=== PATIENT | male | born 1935 | race Caucasian/White ===

== ENCOUNTER 2016-11-06 14:47 | Outpatient (CLI) | payer MEDICARE, OTHER ==
[2016-11-06 15:15] LABS: #Basophils 0.1 thou/uL (0.0-0.2); #Eosinphils 0.2 thou/uL (0.0-0.7); #Lymphocytes 1.7 thou/uL (1.20-3.40); #Monocytes 0.5 thou/uL (0.11-0.59); #Neutrophils 3.7 thou/uL (1.40-6.50); %Basophils 0.9 % (0.0-1.0); %Eosinophils 3.7 % (0.0-10.0); %Monocytes 8.3 % (0.0-10.0); Hematocrit 37.2 % (42.0-52.0); Mean Platelet Volume 8.1 fL (7.4-10.4); Red Blood Cell (RBC) Count 3.81 mill/uL (4.70-6.10); White Blood Cell (WBC) Count 6.2 thou/uL (4.8-10.8)
[2016-11-06 15:32] LABS: Hemoglobin A1c 6.8 % (4.0-6.0)
[2016-11-06 15:37] LABS: ALT (SGPT) 17 U/L (0-55); AST (SGOT) 18 U/L (5-34); Alkaline Phosphatase 61 U/L (40-150); Anion Gap 16 mmol/L (10-20); BUN (Urea Nitrogen) 31 mg/dL (8.4-25.7); Bilirubin, Total 0.4 mg/dL (0.2-1.2); Calc. Creatinine Clearance 0 mL/min (70-130); Calcium 9.1 mg/dL (7.8-10.44); Carbon Dioxide 26 mmol/L (23-31); Chloride 107 mmol/L (98-107); Estimated GFR-MDRD 48; Globulin 2.4 g/dL (2.4-3.5); LDL Cholesterol, Calculated 96 mg/dL; Protein, Total 6.3 g/dL (5.8-8.1)
== END 2016-11-06 14:48 | disposition home or self-care (01) ==
LOC: HPCALD 14:47
PROVIDERS: ATTEND Family Medicine
DX: E78.5 Hyperlipidemia, unspecified (principal); I10 Essential (primary) hypertension; E11.9 Type 2 diabetes mellitus without complications
CPT/HCPCS: 36415; 80053; 80061; 83036; 85025

== ENCOUNTER 2017-05-10 12:13 | Outpatient (CLI) | payer MEDICARE, OTHER ==
[2017-05-10 12:44] LABS: ALT (SGPT) 16 U/L (8-55); AST (SGOT) 15 U/L (5-34); Albumin 3.5 g/dL (3.4-4.8); Alkaline Phosphatase 59 U/L (40-150); Anion Gap 13 mmol/L (10-20); BUN (Urea Nitrogen) 30 mg/dL (8.4-25.7); Bilirubin, Total 0.5 mg/dL (0.2-1.2); Calc. Creatinine Clearance 0 mL/min (70-130); Calcium 8.7 mg/dL (7.8-10.44); Carbon Dioxide 29 mmol/L (23-31); Cardiac Risk 3.4 (Less than 4.5); Chloride 106 mmol/L (98-107); Cholesterol 112 mg/dl (< 200 Desired); Estimated GFR-MDRD 63; Globulin 2.7 g/dL (2.4-3.5); Glucose 211 mg/dL (83-110); HDL Cholesterol 33 mg/dL (>60 Neg Risk); LDL Cholesterol, Calculated 59 mg/dL; Potassium 4.3 mmol/L (3.5-5.1); Protein, Total 6.2 g/dL (5.8-8.1); Sodium 144 mmol/L (136-145); Triglycerides 100 mg/dL (Less than 150)
[2017-05-10 13:29] LABS: #Eosinphils 0.2 thou/uL (0.0-0.7); #Lymphocytes 1.6 thou/uL (1.20-3.40); #Monocytes 0.6 thou/uL (0.11-0.59); #Neutrophils 3.1 thou/uL (1.40-6.50); %Basophils 0.9 % (0.0-1.0); %Eosinophils 4.1 % (0.0-10.0); %Lymphocytes 28.2 % (21.0-51.0); %Monocytes 11.1 % (0.0-10.0); %Neutrophils 55.7 % (42.0-75.0); Hemoglobin 11.2 g/dL (14.0-18.0); Mean Corpuscular HGB CONC 34.9 g/dL (32.0-36.0); Mean Corpuscular Hemoglobin 33.1 pg (27.0-31.0); Mean Corpuscular Volume 94.7 fl (80.0-94.0); Mean Platelet Volume 7.9 fL (7.4-10.4); Platelet Count 173 thou/uL (130-400); RBC Distribution Width 13.3 % (11.5-14.5); Red Blood Cell (RBC) Count 3.38 mill/uL (4.70-6.10); White Blood Cell (WBC) Count 5.6 thou/uL (4.8-10.8)
[2017-05-10 13:41] LABS: Hemoglobin A1c 7.4 % (4.0-6.0)
== END 2017-05-10 12:14 | disposition home or self-care (01) ==
LOC: HPCALD 12:13
PROVIDERS: ATTEND Family Medicine
DX: E78.5 Hyperlipidemia, unspecified (principal); E53.8 Deficiency of other specified B group vitamins; E11.9 Type 2 diabetes mellitus without complications; I10 Essential (primary) hypertension
CPT/HCPCS: 36415; 80053; 80061; 82607; 83036; 85025

== ENCOUNTER 2017-06-19 15:02 | Outpatient (CLI) | payer MEDICARE, OTHER | END 2017-06-19 15:03 | disposition home or self-care (01) | LOC: BURLABSP 15:02 | PROVIDERS: ATTEND Family Medicine | DX: E11.621 Type 2 diabetes mellitus with foot ulcer (principal); L97.512 Non-pressure chronic ulcer of other part of right foot with fat layer exposed | CPT/HCPCS: 87070; 87077; 87186; 87205 ==

== ENCOUNTER 2017-07-16 11:37 | Inpatient (IN) | payer MEDICARE, OTHER ==
[2017-07-16 15:05] VITALS: BMI 40.4
[2017-07-16] MEDS ORDERED: Insulin Regular 300 UNITS/3 ML VIAL SC PRN ×2 (17:27→23:28)
[2017-07-16] MEDS ORDERED: HYDROcodone/Acetaminophen 5/325 mg Tablet PO PRN (17:27)
[2017-07-16] MEDS: Ascorbic Acid 500 mg Chewable Tablet PO SCH (22:21)
[2017-07-16] MEDS: Nitrofurantoin Monohyd/M-Cryst 100 MG CAP PO SCH (22:29)
[2017-07-16] MEDS: Atorvastatin Calcium 40 MG TAB PO SCH (22:30)
[2017-07-16] MEDS: Carvedilol 3.125 MG TAB PO SCH (22:30)
[2017-07-16] MEDS: Isosorbide Dinitrate 20 MG TAB PO SCH (22:30)
[2017-07-16] MEDS: Gabapentin 300 MG CAP PO SCH (22:31)
[2017-07-16] MEDS ORDERED: Dextrose 50% Abboject 50 ML SYRINGE IVP PRN (23:26)
[2017-07-16] MEDS ORDERED: Dextrose 5% in Water 1,000 ML IV PRN (23:26)
[2017-07-17] MEDS: Docusate Sodium 100 MG/10 ML UDCUP PO PRN (10:52)
[2017-07-17] MEDS: Polyethylene Glycol 3350 17 GM Packet PO PRN (10:52)
[2017-07-17] MEDS: Levemir Flexpen 100 UNITS/ML PEN SC SCH (10:52)
[2017-07-17] MEDS: glipiZIDE 5 MG TAB PO SCH (10:58)
[2017-07-17] MEDS: Terazosin HCl 1 MG CAP PO SCH (11:02)
[2017-07-17] MEDS: Ascorbic Acid 500 mg Chewable Tablet PO SCH ×2 (11:03→20:40)
[2017-07-17] MEDS: Famotidine 20 MG TAB PO SCH (11:03)
[2017-07-17] MEDS: Nitrofurantoin Monohyd/M-Cryst 100 MG CAP PO SCH ×2 (11:04→20:41)
[2017-07-17] MEDS: Ferrous Sulfate 325 MG TAB PO SCH ×2 (11:04→18:23)
[2017-07-17] MEDS: metFORMIN HCl XR 500 MG TAB PO SCH ×2 (11:04→18:23)
[2017-07-17] MEDS: Isosorbide Dinitrate 20 MG TAB PO SCH ×2 (11:04→20:41)
[2017-07-17] MEDS: Carvedilol 3.125 MG TAB PO SCH ×2 (11:05→20:39)
[2017-07-17] MEDS: Gabapentin 300 MG CAP PO SCH ×2 (11:05→20:42)
[2017-07-17] MEDS: Aspirin 81 mg Enteric Coated Tablet PO SCH (11:06)
[2017-07-17] MEDS: Dronedarone HCl 400 MG TAB PO SCH ×2 (11:06→18:23)
[2017-07-17] MEDS: Furosemide 40 MG TAB PO SCH (11:10)
[2017-07-17] MEDS: Insulin Regular 300 UNITS/3 ML VIAL SC PRN ×2 (13:08→18:26)
[2017-07-17] MEDS: Atorvastatin Calcium 40 MG TAB PO SCH (20:40)
[2017-07-18] MEDS: glipiZIDE 5 MG TAB PO SCH (08:42)
[2017-07-18] MEDS: Gabapentin 300 MG CAP PO SCH ×2 (08:43→21:48)
[2017-07-18] MEDS: Terazosin HCl 1 MG CAP PO SCH (08:44)
[2017-07-18] MEDS: Ascorbic Acid 500 mg Chewable Tablet PO SCH ×2 (08:45→21:47)
[2017-07-18] MEDS: Furosemide 40 MG TAB PO SCH (08:45)
[2017-07-18] MEDS: Carvedilol 3.125 MG TAB PO SCH ×2 (08:45→21:47)
[2017-07-18] MEDS: metFORMIN HCl XR 500 MG TAB PO SCH ×2 (08:46→21:45)
[2017-07-18] MEDS: Isosorbide Dinitrate 20 MG TAB PO SCH ×2 (08:47→21:49)
[2017-07-18] MEDS: Nitrofurantoin Monohyd/M-Cryst 100 MG CAP PO SCH ×2 (08:47→21:45)
[2017-07-18] MEDS: Famotidine 20 MG TAB PO SCH (08:48)
[2017-07-18] MEDS: Ferrous Sulfate 325 MG TAB PO SCH ×2 (08:51→21:48)
[2017-07-18] MEDS: Dronedarone HCl 400 MG TAB PO SCH ×2 (08:51→21:48)
[2017-07-18] MEDS: Aspirin 81 mg Enteric Coated Tablet PO SCH (09:03)
[2017-07-18] MEDS: Levemir Flexpen 100 UNITS/ML PEN SC SCH (09:07)
[2017-07-18] MEDS: Atorvastatin Calcium 40 MG TAB PO SCH (21:48)
[2017-07-19] MEDS: Levemir Flexpen 100 UNITS/ML PEN SC SCH (10:45)
[2017-07-19] MEDS: Aspirin 81 mg Enteric Coated Tablet PO SCH (10:45)
[2017-07-19] MEDS: Terazosin HCl 1 MG CAP PO SCH (10:47)
[2017-07-19] MEDS: Ascorbic Acid 500 mg Chewable Tablet PO SCH ×2 (10:47→21:10)
[2017-07-19] MEDS: Famotidine 20 MG TAB PO SCH (10:48)
[2017-07-19] MEDS: Nitrofurantoin Monohyd/M-Cryst 100 MG CAP PO SCH ×2 (10:48→21:11)
[2017-07-19] MEDS: glipiZIDE 5 MG TAB PO SCH (10:48)
[2017-07-19] MEDS: Carvedilol 3.125 MG TAB PO SCH ×2 (10:49→21:16)
[2017-07-19] MEDS: Gabapentin 300 MG CAP PO SCH ×2 (10:50→21:09)
[2017-07-19] MEDS: Isosorbide Dinitrate 20 MG TAB PO SCH ×2 (10:51→21:16)
[2017-07-19] MEDS: Furosemide 40 MG TAB PO SCH (10:53)
[2017-07-19] MEDS: Dronedarone HCl 400 MG TAB PO SCH ×2 (10:53→18:11)
[2017-07-19] MEDS: Ferrous Sulfate 325 MG TAB PO SCH ×2 (10:53→18:12)
[2017-07-19] MEDS: metFORMIN HCl XR 500 MG TAB PO SCH ×2 (10:59→18:11)
[2017-07-19] MEDS: Atorvastatin Calcium 40 MG TAB PO SCH (21:10)
[2017-07-20] MEDS: glipiZIDE 5 MG TAB PO SCH (08:34)
[2017-07-20] MEDS: Carvedilol 3.125 MG TAB PO SCH ×2 (08:37→21:10)
[2017-07-20] MEDS: Aspirin 81 mg Enteric Coated Tablet PO SCH (08:37)
[2017-07-20] MEDS: metFORMIN HCl XR 500 MG TAB PO SCH ×2 (08:37→16:33)
[2017-07-20] MEDS: Gabapentin 300 MG CAP PO SCH ×2 (08:39→21:07)
[2017-07-20] MEDS: Terazosin HCl 1 MG CAP PO SCH (08:39)
[2017-07-20] MEDS: Nitrofurantoin Monohyd/M-Cryst 100 MG CAP PO SCH ×2 (08:40→21:10)
[2017-07-20] MEDS: Furosemide 40 MG TAB PO SCH (08:40)
[2017-07-20] MEDS: Ascorbic Acid 500 mg Chewable Tablet PO SCH ×2 (08:41→21:09)
[2017-07-20] MEDS: Famotidine 20 MG TAB PO SCH (08:41)
[2017-07-20] MEDS: Isosorbide Dinitrate 20 MG TAB PO SCH ×2 (08:41→21:13)
[2017-07-20] MEDS: Dronedarone HCl 400 MG TAB PO SCH ×2 (08:41→16:33)
[2017-07-20] MEDS: Ferrous Sulfate 325 MG TAB PO SCH ×2 (08:41→16:33)
[2017-07-20] MEDS: Levemir Flexpen 100 UNITS/ML PEN SC SCH (08:42)
[2017-07-20] MEDS ORDERED: diphenhydrAMINE HCl 25 MG CAP PO PRN (10:22)
[2017-07-20] MEDS: Insulin Regular 300 UNITS/3 ML VIAL SC PRN (12:30)
[2017-07-20] MEDS: Atorvastatin Calcium 40 MG TAB PO SCH (21:08)
[2017-07-21] MEDS: Levemir Flexpen 100 UNITS/ML PEN SC SCH (09:15)
[2017-07-21] MEDS: Nitrofurantoin Monohyd/M-Cryst 100 MG CAP PO SCH ×2 (09:24→21:04)
[2017-07-21] MEDS: Isosorbide Dinitrate 20 MG TAB PO SCH ×2 (09:24→21:06)
[2017-07-21] MEDS: Dronedarone HCl 400 MG TAB PO SCH ×2 (09:24→17:37)
[2017-07-21] MEDS: glipiZIDE 5 MG TAB PO SCH (09:25)
[2017-07-21] MEDS: metFORMIN HCl XR 500 MG TAB PO SCH ×2 (09:25→17:36)
[2017-07-21] MEDS: Ferrous Sulfate 325 MG TAB PO SCH ×2 (09:25→17:36)
[2017-07-21] MEDS: Terazosin HCl 1 MG CAP PO SCH (09:25)
[2017-07-21] MEDS: Furosemide 40 MG TAB PO SCH (09:25)
[2017-07-21] MEDS: Famotidine 20 MG TAB PO SCH (09:26)
[2017-07-21] MEDS: Carvedilol 3.125 MG TAB PO SCH ×2 (09:26→21:07)
[2017-07-21] MEDS: Aspirin 81 mg Enteric Coated Tablet PO SCH (09:27)
[2017-07-21] MEDS: Gabapentin 300 MG CAP PO SCH ×2 (09:27→21:01)
[2017-07-21] MEDS: Ascorbic Acid 500 mg Chewable Tablet PO SCH ×2 (09:28→21:03)
[2017-07-21] MEDS: Atorvastatin Calcium 40 MG TAB PO SCH (21:03)
[2017-07-22] MEDS: glipiZIDE 5 MG TAB PO SCH (08:19)
[2017-07-22] MEDS: Dronedarone HCl 400 MG TAB PO SCH ×2 (08:20→17:15)
[2017-07-22] MEDS: Ferrous Sulfate 325 MG TAB PO SCH ×2 (08:21→17:15)
[2017-07-22] MEDS: Ascorbic Acid 500 mg Chewable Tablet PO SCH ×2 (08:21→21:21)
[2017-07-22] MEDS: metFORMIN HCl XR 500 MG TAB PO SCH ×2 (08:21→17:15)
[2017-07-22] MEDS: Aspirin 81 mg Enteric Coated Tablet PO SCH (08:22)
[2017-07-22] MEDS: Carvedilol 3.125 MG TAB PO SCH ×2 (08:22→21:25)
[2017-07-22] MEDS: Furosemide 40 MG TAB PO SCH (08:23)
[2017-07-22] MEDS: Famotidine 20 MG TAB PO SCH (08:23)
[2017-07-22] MEDS: Gabapentin 300 MG CAP PO SCH ×2 (08:23→21:22)
[2017-07-22] MEDS: Nitrofurantoin Monohyd/M-Cryst 100 MG CAP PO SCH ×2 (08:25→21:23)
[2017-07-22] MEDS: Isosorbide Dinitrate 20 MG TAB PO SCH ×2 (08:25→21:24)
[2017-07-22] MEDS: Terazosin HCl 1 MG CAP PO SCH (08:26)
[2017-07-22] MEDS: Levemir Flexpen 100 UNITS/ML PEN SC SCH (08:32)
[2017-07-22] MEDS: Atorvastatin Calcium 40 MG TAB PO SCH (21:23)
[2017-07-22] MEDS: Polyethylene Glycol 3350 17 GM Packet PO PRN (22:29)
[2017-07-23] MEDS: metFORMIN HCl XR 500 MG TAB PO SCH ×2 (08:14→17:59)
[2017-07-23] MEDS: Terazosin HCl 1 MG CAP PO SCH (08:17)
[2017-07-23] MEDS: glipiZIDE 5 MG TAB PO SCH (08:18)
[2017-07-23] MEDS: Ferrous Sulfate 325 MG TAB PO SCH ×2 (08:18→17:59)
[2017-07-23] MEDS: Dronedarone HCl 400 MG TAB PO SCH ×2 (08:18→18:00)
[2017-07-23] MEDS: Ascorbic Acid 500 mg Chewable Tablet PO SCH ×2 (08:18→20:27)
[2017-07-23] MEDS: Gabapentin 300 MG CAP PO SCH ×2 (08:19→20:28)
[2017-07-23] MEDS: Famotidine 20 MG TAB PO SCH (08:20)
[2017-07-23] MEDS: Carvedilol 3.125 MG TAB PO SCH ×2 (08:20→20:34)
[2017-07-23] MEDS: Nitrofurantoin Monohyd/M-Cryst 100 MG CAP PO SCH ×2 (08:20→20:28)
[2017-07-23] MEDS: Isosorbide Dinitrate 20 MG TAB PO SCH ×2 (08:20→20:28)
[2017-07-23] MEDS: Aspirin 81 mg Enteric Coated Tablet PO SCH (08:20)
[2017-07-23] MEDS: Furosemide 40 MG TAB PO SCH (08:20)
[2017-07-23] MEDS: Levemir Flexpen 100 UNITS/ML PEN SC SCH (08:26)
[2017-07-23] MEDS: Docusate Sodium 100 MG/10 ML UDCUP PO PRN (08:31)
[2017-07-23] MEDS ORDERED: Milk Of Magnesia 30 ML UDCUP PO PRN (18:03)
[2017-07-23] MEDS ORDERED: Docusate 100 MG CAP PO PRN (18:03)
[2017-07-23] MEDS: Senokot 8.6 MG TAB PO SCH (20:29)
[2017-07-23] MEDS: Atorvastatin Calcium 40 MG TAB PO SCH (20:30)
[2017-07-24] MEDS: glipiZIDE 5 MG TAB PO SCH (09:19)
[2017-07-24] MEDS: metFORMIN HCl XR 500 MG TAB PO SCH ×2 (09:19→17:26)
[2017-07-24] MEDS: Terazosin HCl 1 MG CAP PO SCH (09:20)
[2017-07-24] MEDS: Gabapentin 300 MG CAP PO SCH ×2 (09:20→21:12)
[2017-07-24] MEDS: Carvedilol 3.125 MG TAB PO SCH ×2 (09:20→21:12)
[2017-07-24] MEDS: Famotidine 20 MG TAB PO SCH (09:20)
[2017-07-24] MEDS: Isosorbide Dinitrate 20 MG TAB PO SCH ×2 (09:21→21:12)
[2017-07-24] MEDS: Ferrous Sulfate 325 MG TAB PO SCH ×2 (09:21→17:25)
[2017-07-24] MEDS: Ascorbic Acid 500 mg Chewable Tablet PO SCH ×2 (09:21→21:13)
[2017-07-24] MEDS: Furosemide 40 MG TAB PO SCH (09:21)
[2017-07-24] MEDS: Finasteride 5 MG TAB PO SCH (09:21)
[2017-07-24] MEDS: Dronedarone HCl 400 MG TAB PO SCH ×2 (09:21→18:47)
[2017-07-24] MEDS: Aspirin 81 mg Enteric Coated Tablet PO SCH (09:34)
[2017-07-24] MEDS: BREO PO SCH (09:36)
[2017-07-24] MEDS: Polyethylene Glycol 3350 17 GM Packet PO PRN (09:39)
[2017-07-24] MEDS: Levemir Flexpen 100 UNITS/ML PEN SC SCH (09:41)
[2017-07-24] MEDS: Insulin Regular 300 UNITS/3 ML VIAL SC PRN (17:26)
[2017-07-24] MEDS: Atorvastatin Calcium 40 MG TAB PO SCH (21:13)
[2017-07-24] MEDS: Senokot 8.6 MG TAB PO SCH (21:14)
[2017-07-25] MEDS: Levemir Flexpen 100 UNITS/ML PEN SC SCH (08:34)
[2017-07-25] MEDS: Ferrous Sulfate 325 MG TAB PO SCH ×2 (09:58→18:21)
[2017-07-25] MEDS: Furosemide 40 MG TAB PO SCH (09:58)
[2017-07-25] MEDS: Finasteride 5 MG TAB PO SCH (09:59)
[2017-07-25] MEDS: Isosorbide Dinitrate 20 MG TAB PO SCH ×2 (09:59→20:59)
[2017-07-25] MEDS: Ascorbic Acid 500 mg Chewable Tablet PO SCH ×2 (09:59→20:59)
[2017-07-25] MEDS: Gabapentin 300 MG CAP PO SCH ×2 (10:00→21:00)
[2017-07-25] MEDS: Terazosin HCl 1 MG CAP PO SCH (10:00)
[2017-07-25] MEDS: Famotidine 20 MG TAB PO SCH (10:01)
[2017-07-25] MEDS: Polyethylene Glycol 3350 17 GM Packet PO PRN (10:02)
[2017-07-25] MEDS: Dronedarone HCl 400 MG TAB PO SCH ×2 (10:02→18:20)
[2017-07-25] MEDS: BREO PO SCH (10:02)
[2017-07-25] MEDS: Aspirin 81 mg Enteric Coated Tablet PO SCH (10:02)
[2017-07-25] MEDS: metFORMIN HCl XR 500 MG TAB PO SCH ×2 (10:02→18:20)
[2017-07-25] MEDS: glipiZIDE 5 MG TAB PO SCH (10:02)
[2017-07-25] MEDS: Carvedilol 3.125 MG TAB PO SCH ×2 (10:03→21:05)
[2017-07-25] MEDS: Insulin Regular 300 UNITS/3 ML VIAL SC PRN (13:36)
[2017-07-25] MEDS: Senokot 8.6 MG TAB PO SCH (21:00)
[2017-07-25] MEDS: Atorvastatin Calcium 40 MG TAB PO SCH (21:01)
[2017-07-26] MEDS: glipiZIDE 5 MG TAB PO SCH (08:33)
[2017-07-26] MEDS: Dronedarone HCl 400 MG TAB PO SCH ×2 (08:33→18:53)
[2017-07-26] MEDS: Ferrous Sulfate 325 MG TAB PO SCH ×2 (08:34→18:52)
[2017-07-26] MEDS: metFORMIN HCl XR 500 MG TAB PO SCH ×2 (08:35→18:51)
[2017-07-26] MEDS: Aspirin 81 mg Enteric Coated Tablet PO SCH (08:35)
[2017-07-26] MEDS: Ascorbic Acid 500 mg Chewable Tablet PO SCH ×2 (08:35→21:05)
[2017-07-26] MEDS: Furosemide 40 MG TAB PO SCH (08:36)
[2017-07-26] MEDS: Gabapentin 300 MG CAP PO SCH ×2 (08:36→21:04)
[2017-07-26] MEDS: Famotidine 20 MG TAB PO SCH (08:36)
[2017-07-26] MEDS: Finasteride 5 MG TAB PO SCH (08:37)
[2017-07-26] MEDS: Isosorbide Dinitrate 20 MG TAB PO SCH ×2 (08:37→21:09)
[2017-07-26] MEDS: Carvedilol 3.125 MG TAB PO SCH ×2 (08:37→21:06)
[2017-07-26] MEDS: Terazosin HCl 1 MG CAP PO SCH (08:38)
[2017-07-26] MEDS: BREO PO SCH (08:39)
[2017-07-26] MEDS: Levemir Flexpen 100 UNITS/ML PEN SC SCH (08:46)
[2017-07-26] MEDS: diphenhydrAMINE HCl 25 MG CAP PO PRN (08:50)
[2017-07-26 11:29] LABS: Bilirubin Negative (Negative); Blood, Urine Negative (Negative); Clarity Slightly Cloudy (Clear); Glucose, Urine (Dipstick) Negative (Negative); Leukocyte Small (Negative); Nitrite Negative (Negative); Protein, Urine (Dipstick) Negative (Neg-Trace); Urobilinogen 0.2 mg/dL (0.2-1.0); pH, Urine 5.5 (5.0-9.0)
[2017-07-26 11:40] LABS: RBC/HPF None Seen HPF (0-3); WBC/HPF 0-3 HPF (0-3)
[2017-07-26 11:41] LABS: Bacteria/HPF Rare-Few HPF (None Seen); Crystals/HPF 1+ AMORPH URATES HPF (Negative); Squamous Epithelial 0-3 HPF (0-3)
[2017-07-26] MEDS: Atorvastatin Calcium 40 MG TAB PO SCH (21:06)
[2017-07-26] MEDS: Senokot 8.6 MG TAB PO SCH (21:09)
[2017-07-27] MEDS: Dronedarone HCl 400 MG TAB PO SCH ×2 (09:12→17:48)
[2017-07-27] MEDS: Aspirin 81 mg Enteric Coated Tablet PO SCH (09:12)
[2017-07-27] MEDS: Gabapentin 300 MG CAP PO SCH ×2 (09:13→20:21)
[2017-07-27] MEDS: Terazosin HCl 1 MG CAP PO SCH (09:13)
[2017-07-27] MEDS: Ascorbic Acid 500 mg Chewable Tablet PO SCH ×2 (09:15→20:22)
[2017-07-27] MEDS: metFORMIN HCl XR 500 MG TAB PO SCH ×2 (09:15→17:48)
[2017-07-27] MEDS: Carvedilol 3.125 MG TAB PO SCH ×2 (09:15→20:23)
[2017-07-27] MEDS: Isosorbide Dinitrate 20 MG TAB PO SCH ×2 (09:15→20:23)
[2017-07-27] MEDS: Finasteride 5 MG TAB PO SCH (09:16)
[2017-07-27] MEDS: glipiZIDE 5 MG TAB PO SCH (09:16)
[2017-07-27] MEDS: Furosemide 40 MG TAB PO SCH (09:16)
[2017-07-27] MEDS: Famotidine 20 MG TAB PO SCH (09:16)
[2017-07-27] MEDS: BREO PO SCH (09:21)
[2017-07-27] MEDS: Ferrous Sulfate 325 MG TAB PO SCH ×2 (09:21→17:48)
[2017-07-27] MEDS: Levemir Flexpen 100 UNITS/ML PEN SC SCH (09:26)
[2017-07-27] MEDS: Insulin Regular 300 UNITS/3 ML VIAL SC PRN (13:07)
[2017-07-27] MEDS: diphenhydrAMINE HCl 25 MG CAP PO PRN (14:55)
[2017-07-27] MEDS: Polyethylene Glycol 3350 17 GM Packet PO PRN (17:52)
[2017-07-27] MEDS: Atorvastatin Calcium 40 MG TAB PO SCH (20:20)
[2017-07-27] MEDS: Senokot 8.6 MG TAB PO SCH (20:22)
[2017-07-28] MEDS: Aspirin 81 mg Enteric Coated Tablet PO SCH (09:19)
[2017-07-28] MEDS: BREO PO SCH (09:19)
[2017-07-28] MEDS: Dronedarone HCl 400 MG TAB PO SCH ×2 (09:20→17:39)
[2017-07-28] MEDS: Polyethylene Glycol 3350 17 GM Packet PO PRN (09:20)
[2017-07-28] MEDS: glipiZIDE 5 MG TAB PO SCH (09:20)
[2017-07-28] MEDS: Terazosin HCl 1 MG CAP PO SCH (09:21)
[2017-07-28] MEDS: Carvedilol 3.125 MG TAB PO SCH ×2 (09:21→20:27)
[2017-07-28] MEDS: Finasteride 5 MG TAB PO SCH (09:23)
[2017-07-28] MEDS: Famotidine 20 MG TAB PO SCH (09:23)
[2017-07-28] MEDS: Gabapentin 300 MG CAP PO SCH ×2 (09:23→20:26)
[2017-07-28] MEDS: Ferrous Sulfate 325 MG TAB PO SCH ×2 (09:24→17:39)
[2017-07-28] MEDS: Isosorbide Dinitrate 20 MG TAB PO SCH ×2 (09:24→20:27)
[2017-07-28] MEDS: Ascorbic Acid 500 mg Chewable Tablet PO SCH ×2 (09:25→20:26)
[2017-07-28] MEDS: Furosemide 40 MG TAB PO SCH (09:26)
[2017-07-28] MEDS: metFORMIN HCl XR 500 MG TAB PO SCH ×2 (09:26→17:39)
[2017-07-28] MEDS: Levemir Flexpen 100 UNITS/ML PEN SC SCH (09:30)
[2017-07-28] MEDS: Senokot 8.6 MG TAB PO SCH (20:26)
[2017-07-28] MEDS: Atorvastatin Calcium 40 MG TAB PO SCH (20:26)
[2017-07-29] MEDS: Polyethylene Glycol 3350 17 GM Packet PO PRN (08:40)
[2017-07-29] MEDS: Ascorbic Acid 500 mg Chewable Tablet PO SCH ×2 (08:42→21:14)
[2017-07-29] MEDS: Aspirin 81 mg Enteric Coated Tablet PO SCH (08:43)
[2017-07-29] MEDS: Furosemide 40 MG TAB PO SCH (08:44)
[2017-07-29] MEDS: glipiZIDE 5 MG TAB PO SCH (08:44)
[2017-07-29] MEDS: Terazosin HCl 1 MG CAP PO SCH (08:44)
[2017-07-29] MEDS: Finasteride 5 MG TAB PO SCH (08:45)
[2017-07-29] MEDS: metFORMIN HCl XR 500 MG TAB PO SCH ×2 (08:45→18:02)
[2017-07-29] MEDS: Isosorbide Dinitrate 20 MG TAB PO SCH ×2 (08:45→21:14)
[2017-07-29] MEDS: Gabapentin 300 MG CAP PO SCH ×2 (08:45→21:15)
[2017-07-29] MEDS: Dronedarone HCl 400 MG TAB PO SCH ×2 (08:47→18:03)
[2017-07-29] MEDS: Ferrous Sulfate 325 MG TAB PO SCH ×2 (08:48→18:03)
[2017-07-29] MEDS: BREO PO SCH (08:48)
[2017-07-29] MEDS: Levemir Flexpen 100 UNITS/ML PEN SC SCH (08:49)
[2017-07-29] MEDS: Famotidine 20 MG TAB PO SCH (11:05)
[2017-07-29] MEDS: Carvedilol 3.125 MG TAB PO SCH ×2 (11:06→21:16)
[2017-07-29] MEDS: Insulin Regular 300 UNITS/3 ML VIAL SC PRN (13:43)
--- NOTE | 2017-07-29 16:23 | RAD ---
RIGHT FOOT 3 VIEWS: DATE: 07/29/17. COMPARISON: No prior films were available for comparison. FINDINGS: There is some sclerosis of the 3rd, 4th, and 5th metatarsal shafts with some angulation of the 5th m etatarsal shaft. Bony overgrowth between the metatarsals is noted. The findings are more likely du e to old trauma than anything acute. I would consider the study indeterminate for osteomyelitis. T he findings present could easily all be chronic. It would probably take an MRI to see if there was any edema in any of these bones to be conclusive. No gross acute fracture was seen. IMPRESSION: Chronic deformity of the foot with findings indeterminate for osteomyelitis. POS: HOME
[2017-07-29] MEDS: Senokot 8.6 MG TAB PO SCH (21:15)
[2017-07-29] MEDS: Atorvastatin Calcium 40 MG TAB PO SCH (21:16)
[2017-07-30] MEDS: Polyethylene Glycol 3350 17 GM Packet PO PRN (08:19)
[2017-07-30] MEDS: Dronedarone HCl 400 MG TAB PO SCH ×2 (08:19→17:35)
[2017-07-30] MEDS: Aspirin 81 mg Enteric Coated Tablet PO SCH (08:20)
[2017-07-30] MEDS: Ascorbic Acid 500 mg Chewable Tablet PO SCH ×2 (08:22→20:42)
[2017-07-30] MEDS: Gabapentin 300 MG CAP PO SCH ×2 (08:23→20:49)
[2017-07-30] MEDS: Terazosin HCl 1 MG CAP PO SCH (08:23)
[2017-07-30] MEDS: Famotidine 20 MG TAB PO SCH (08:23)
[2017-07-30] MEDS: Finasteride 5 MG TAB PO SCH (08:24)
[2017-07-30] MEDS: metFORMIN HCl XR 500 MG TAB PO SCH ×2 (08:24→17:35)
[2017-07-30] MEDS: Ferrous Sulfate 325 MG TAB PO SCH ×2 (08:24→17:35)
[2017-07-30] MEDS: Isosorbide Dinitrate 20 MG TAB PO SCH ×2 (08:24→20:42)
[2017-07-30] MEDS: glipiZIDE 5 MG TAB PO SCH (08:24)
[2017-07-30] MEDS: Carvedilol 3.125 MG TAB PO SCH ×2 (08:25→20:50)
[2017-07-30] MEDS: Furosemide 40 MG TAB PO SCH (08:25)
[2017-07-30] MEDS: Levemir Flexpen 100 UNITS/ML PEN SC SCH (08:26)
[2017-07-30] MEDS: BREO PO SCH (08:49)
[2017-07-30] MEDS: Insulin Regular 300 UNITS/3 ML VIAL SC PRN (13:37)
[2017-07-30] MEDS: Atorvastatin Calcium 40 MG TAB PO SCH (20:49)
[2017-07-30] MEDS: Senokot 8.6 MG TAB PO SCH (20:49)
[2017-07-31] MEDS: Dronedarone HCl 400 MG TAB PO SCH ×2 (11:08→16:57)
[2017-07-31] MEDS: Ascorbic Acid 500 mg Chewable Tablet PO SCH ×2 (11:09→20:29)
[2017-07-31] MEDS: Finasteride 5 MG TAB PO SCH (11:10)
[2017-07-31] MEDS: Isosorbide Dinitrate 20 MG TAB PO SCH ×2 (11:10→20:30)
[2017-07-31] MEDS: Furosemide 40 MG TAB PO SCH (11:10)
[2017-07-31] MEDS: Terazosin HCl 1 MG CAP PO SCH (11:11)
[2017-07-31] MEDS: Gabapentin 300 MG CAP PO SCH ×2 (11:11→20:30)
[2017-07-31] MEDS: Carvedilol 3.125 MG TAB PO SCH ×2 (11:12→20:30)
[2017-07-31] MEDS: metFORMIN HCl XR 500 MG TAB PO SCH ×2 (11:21→16:57)
[2017-07-31] MEDS: Ferrous Sulfate 325 MG TAB PO SCH ×2 (11:22→16:57)
[2017-07-31] MEDS: glipiZIDE 5 MG TAB PO SCH (11:22)
[2017-07-31] MEDS: Aspirin 81 mg Enteric Coated Tablet PO SCH (11:23)
[2017-07-31] MEDS: BREO PO SCH (11:23)
[2017-07-31] MEDS: Levemir Flexpen 100 UNITS/ML PEN SC SCH (11:25)
[2017-07-31] MEDS: Polyethylene Glycol 3350 17 GM Packet PO PRN (11:42)
[2017-07-31] MEDS: Famotidine 20 MG TAB PO SCH (14:07)
[2017-07-31] MEDS: Insulin Regular 300 UNITS/3 ML VIAL SC PRN (18:07)
[2017-07-31] MEDS: Senokot 8.6 MG TAB PO SCH (20:30)
[2017-07-31] MEDS: Atorvastatin Calcium 40 MG TAB PO SCH (20:32)
[2017-08-01 06:25] VITALS: BP 146/61; TEMP 98
[2017-08-01] MEDS: Ascorbic Acid 500 mg Chewable Tablet PO SCH (09:56)
[2017-08-01] MEDS: Gabapentin 300 MG CAP PO SCH (09:56)
[2017-08-01] MEDS: Terazosin HCl 1 MG CAP PO SCH (09:57)
[2017-08-01] MEDS: glipiZIDE 5 MG TAB PO SCH (09:58)
[2017-08-01] MEDS: Isosorbide Dinitrate 20 MG TAB PO SCH (09:59)
[2017-08-01] MEDS: metFORMIN HCl XR 500 MG TAB PO SCH (09:59)
[2017-08-01] MEDS: Famotidine 20 MG TAB PO SCH (09:59)
[2017-08-01] MEDS: Ferrous Sulfate 325 MG TAB PO SCH (10:00)
[2017-08-01] MEDS: Furosemide 40 MG TAB PO SCH (10:00)
[2017-08-01] MEDS: Carvedilol 3.125 MG TAB PO SCH (10:00)
[2017-08-01] MEDS: Finasteride 5 MG TAB PO SCH (10:00)
[2017-08-01] MEDS: Dronedarone HCl 400 MG TAB PO SCH (10:07)
[2017-08-01] MEDS: Aspirin 81 mg Enteric Coated Tablet PO SCH (10:07)
[2017-08-01] MEDS: Levemir Flexpen 100 UNITS/ML PEN SC SCH (10:09)
--- NOTE | 2017-08-02 05:06 | DIS ---
DATE OF ADMISSION: 07/16/2017 DATE OF DISCHARGE: 08/01/2017 ADMISSION DIAGNOSES: Generalized weakness, urinary tract infection, chronic ulcer of the right foot SECONDARY DIAGNOSES: paroxysmal atrial fibrillation, morbid obesity, obstructive sleep apnea, hypertension, type 2 diabetes mellitus, chronic diastolic heart failure, coronary artery disease, chronic anemia, gastroesophageal reflux disease, urge incontinence. PROCEDURES: On 07/29/2017, foot x-ray showed chronic deformity of the foot with findings indeterminate for osteomyelitis. On 07/31/2017, MRI of the right foot showed no MRI evidence for osteomyelitis. HOSPITAL COURSE: An 82-year-old male with numerous chronic medical conditions transitioned for skilled care s/p admission at [facility], where he was admitted from 07/12/2017 to 07/16/2017 for complaints of significant worsening knee pain status post fall at home, preventing his ability to perform transfers; the patient has ankylosing spondylitis and is largely wheelchair bound and secondary to his morbid obesity and worsening knee pain he was unable to transition at his home setting. He was evaluated by Orthopedics who declined an intra-articular steroid injection secondary to his chronic ulcer of the right foot and underlying type 2 diabetes mellitus. He was subsequently found to have a urinary tract infection, which was treated initially with Rocephin and ultimately discharged to our facility with a 7-day course of Macrobid, which he did successfully complete. Follow up urine culture was negative after completion of antibiotics. The patient did participate with PT, OT, and did show a limited capacity to where they advised the patient against weightbearing activity secondary to significant fall risk. It was advised that he have a free-standing lift set up in his home setting to be able to transfer to his wheelchair; however, he does not currently have this so he was advised that he transition to shelter until properly equipped. Secondary to his lack of ability to participate with PT further and not meeting the standard for further skilled care at [facility] he will be discharged. During his stay, he did receive Wound Care in regards to his chronic right foot ulcer. It was shown that he did not have osteomyelitis involving this area. At this time , he has remained hemodynamically stable and is currently in his baseline condition and able to transition to [facility]. DISPOSITION: The patient will be discharged to [facility] for further care until his free-standing lift can be properly set up at his home setting. DISCHARGE MEDICATIONS: New medication is finasteride 5 mg p.o. daily. He will resume his usual medications otherwise, which include vitamin C 1 gram p.o. b.i.d., aspirin 81 mg p.o. daily, Lipitor 80 mg p.o. at bedtime, Coreg 6.25 mg p.o. b.i.d., vitamin B12 1000 mcg monthly, Dexilant 60 mg p.o. at bedtime, Multaq 400 mg p.o. b.i.d., ferrous sulfate 325 mg p.o. b.i.d., Lasix 40 mg p.o. daily, gabapentin 900 mg p.o. b.i.d., [place] 5 one to two tablets q.6 hours p.r.n., Lantus 30 units subcutaneously daily, Humalog insulin per sliding scale , BiDil 1 tablet b.i.d., ranitidine 300 mg p.o. daily, Hytrin 5 mg p.o. daily, fentanyl patch 25 mcg q.72 h., Glucotrol 10 mg p.o. daily, Metformin 1 gram p.o. b.i.d. MTDD
[2017-08-11] MEDS ORDERED: Cyanocobalamin 1000 MCG/ML VIAL IM SCH (09:00)
== END 2017-08-01 12:22 | DRG 690 ==
LOC: BURMED 11:37
PROVIDERS: ADMIT Family Medicine; ATTEND Family Medicine
DX: N39.0 Urinary tract infection, site not specified (principal); I48.0 Paroxysmal atrial fibrillation; I11.0 Hypertensive heart disease with heart failure; I50.32 Chronic diastolic (congestive) heart failure; Z68.41 Body mass index [BMI] 40.0-44.9, adult; E11.9 Type 2 diabetes mellitus without complications; D64.9 Anemia, unspecified; L97.519 Non-pressure chronic ulcer of other part of right foot with unspecified severity; G47.33 Obstructive sleep apnea (adult) (pediatric); K21.9 Gastro-esophageal reflux disease without esophagitis; I25.10 Atherosclerotic heart disease of native coronary artery without angina pectoris; N39.41 Urge incontinence; E66.01 Morbid (severe) obesity due to excess calories; M45.9 Ankylosing spondylitis of unspecified sites in spine; Z99.3 Dependence on wheelchair
CPT/HCPCS: 36416; 81001; 87086; 97602; G8981-GP-CK; G8982-GP-CI; G8987-GO-CM; G8988-GO-CL; G8990-GP-CH; G8991-GP-CH; J1815

== ENCOUNTER 2017-12-01 15:07 | Outpatient (CLI) | payer MEDICARE ==
--- NOTE | 2017-12-01 17:30 | RAD ---
CHEST 2 VIEWS: Date: 12/01/17 Comparison made with the 08/09/17 study from [facility]. FINDINGS: The heart is not enlarged. There are no congestive changes or pleural effusions. The lungs are clear. There has been no adverse change since the prior study. IMPRESSION: No acute findings. POS: HOME
== END 2017-12-01 15:08 | disposition home or self-care (01) ==
LOC: BURRAD 15:07
PROVIDERS: ATTEND Internal Medicine Cardiovascular Disease
DX: I25.5 Ischemic cardiomyopathy (principal); I48.0 Paroxysmal atrial fibrillation
CPT/HCPCS: 71046

== ENCOUNTER 2018-05-15 11:47 | Outpatient (CLI) | payer MEDICARE ==
--- NOTE | 2018-05-15 18:07 | RAD ---
CHEST TWO VIEWS: 05/15/18 Comparison is made with the prior study of 12/01/17. The heart is normal in size and the lungs are clear. No infiltrate or effusion was seen. The lungs ar e hyperexpanded as usual. There is no sign of pneumonia. The trachea is midline. IMPRESSION: No acute thoracic finding. POS: HOME
== END 2018-05-15 11:48 | disposition home or self-care (01) ==
LOC: BURRAD 11:47
PROVIDERS: ATTEND Family Medicine
DX: R05 Cough (principal)
CPT/HCPCS: 71046

== ENCOUNTER → 2018-08-16 | Day surgery (SDC) | payer MEDICARE ==
[~2018-08-16] MED LIST: Ertapenem 1 GM VIAL ONE; Sodium Chloride 0.9% 100 ML BAG ONE
[2018-08-17 15:04] VITALS: BP 205/83; TEMP 98.2
== END ==
LOC: BUR/OP 11:22
PROVIDERS: ATTEND Internal Medicine Infectious Disease
DX: M86.171 Other acute osteomyelitis, right ankle and foot (principal); Z91.041 Radiographic dye allergy status; Z88.2 Allergy status to sulfonamides; Z88.8 Allergy status to other drugs, medicaments and biological substances
CPT/HCPCS: 96365; 96366; 96367; 99201; G0463; J1335; J1642; J3370; J7050

== ENCOUNTER → 2018-08-17 | Day surgery (SDC) | payer MEDICARE ==
[2018-08-17 15:48] VITALS: BP 203/89; TEMP 97.6
== END ==
LOC: BUR/OP 12:02
PROVIDERS: ATTEND Internal Medicine Infectious Disease
DX: M86.171 Other acute osteomyelitis, right ankle and foot (principal); Z88.2 Allergy status to sulfonamides; Z91.041 Radiographic dye allergy status; Z88.8 Allergy status to other drugs, medicaments and biological substances
CPT/HCPCS: 96365; 96366; 96367; 99201; G0463; J1335; J1642; J3370; J7050

== ENCOUNTER → 2018-08-18 | Day surgery (SDC) | payer MEDICARE ==
[2018-08-18 12:07] LABS: Hemoglobin 9.8 g/dL (14.0-18.0); Mean Corpuscular HGB CONC 32.7 g/dL (32.0-36.0); Mean Corpuscular Hemoglobin 30.5 pg (27.0-31.0); Mean Platelet Volume 8.3 fL (7.4-10.4); Platelet Count 167 thou/uL (130-400); RBC Distribution Width 14.2 % (11.5-14.5); White Blood Cell (WBC) Count 7.3 thou/uL (4.8-10.8)
[2018-08-18 12:13] LABS: Vancomycin, Trough 18.3 ug/mL
[2018-08-18 12:17] LABS: ALT (SGPT) 25 U/L (8-55); AST (SGOT) 24 U/L (5-34); Albumin 3.3 g/dL (3.4-4.8); Alkaline Phosphatase 75 U/L (40-150); Anion Gap 17 mmol/L (10-20); BUN (Urea Nitrogen) 43 mg/dL (8.4-25.7); Bilirubin, Total 0.5 mg/dL (0.2-1.2); Calc. Creatinine Clearance 0 mL/min (70-130); Calcium 8.4 mg/dL (7.8-10.44); Carbon Dioxide 30 mmol/L (23-31); Chloride 102 mmol/L (98-107); Estimated GFR-MDRD 50; Globulin 2.8 g/dL (2.4-3.5); Glucose 180 mg/dL (83-110); Potassium 3.7 mmol/L (3.5-5.1); Protein, Total 6.1 g/dL (5.8-8.1); Sodium 145 mmol/L (136-145)
[2018-08-18 16:14] VITALS: BP 140/62; TEMP 97.7
== END ==
LOC: BUR/OP 11:30
PROVIDERS: ATTEND Internal Medicine Infectious Disease
DX: M86.171 Other acute osteomyelitis, right ankle and foot (principal); Z91.041 Radiographic dye allergy status; Z88.2 Allergy status to sulfonamides; Z88.8 Allergy status to other drugs, medicaments and biological substances
CPT/HCPCS: 36415; 80053; 80202; 85027; J1335; J1642; J3370; J7050

== ENCOUNTER → 2018-08-19 | Day surgery (SDC) | payer MEDICARE ==
[2018-08-19 11:04] VITALS: BP 185/84; TEMP 97.6
== END ==
LOC: BUR/OP 10:47
PROVIDERS: ATTEND Internal Medicine Infectious Disease
DX: M86.171 Other acute osteomyelitis, right ankle and foot (principal); Z91.041 Radiographic dye allergy status; Z88.2 Allergy status to sulfonamides; Z88.8 Allergy status to other drugs, medicaments and biological substances
CPT/HCPCS: 96365; 96366; 96367; 99201; G0463

== ENCOUNTER → 2018-08-20 | Day surgery (SDC) | payer MEDICARE ==
[2018-08-20 16:14] VITALS: BP 182/80; TEMP 97.9
== END ==
LOC: BUR/OP 11:03
PROVIDERS: ATTEND Internal Medicine Infectious Disease
DX: E11.69 Type 2 diabetes mellitus with other specified complication (principal); M86.171 Other acute osteomyelitis, right ankle and foot; Z79.01 Long term (current) use of anticoagulants; Z79.82 Long term (current) use of aspirin; Z79.2 Long term (current) use of antibiotics; Z79.4 Long term (current) use of insulin; Z79.899 Other long term (current) drug therapy; Z88.1 Allergy status to other antibiotic agents; Z88.2 Allergy status to sulfonamides; Z88.8 Allergy status to other drugs, medicaments and biological substances; Z91.041 Radiographic dye allergy status
CPT/HCPCS: 96365; 96366; 99201; G0463; J1335; J1642; J3370; J7050

== ENCOUNTER → 2018-08-21 | Day surgery (SDC) | payer MEDICARE ==
[2018-08-21 15:37] VITALS: BP 119/57; TEMP 97.8
== END ==
LOC: BUR/OP 11:22
PROVIDERS: ATTEND Internal Medicine Infectious Disease
DX: M86.171 Other acute osteomyelitis, right ankle and foot (principal); Z79.01 Long term (current) use of anticoagulants; Z79.82 Long term (current) use of aspirin; Z79.2 Long term (current) use of antibiotics; Z79.4 Long term (current) use of insulin; Z79.899 Other long term (current) drug therapy; Z88.1 Allergy status to other antibiotic agents; Z88.2 Allergy status to sulfonamides; Z88.8 Allergy status to other drugs, medicaments and biological substances; Z91.041 Radiographic dye allergy status
CPT/HCPCS: 96365; 96367; 99201; G0463; J1335; J1642; J3370; J7050

== ENCOUNTER → 2018-08-22 | Day surgery (SDC) | payer MEDICARE ==
[2018-08-22 14:22] VITALS: BP 167/72
== END ==
LOC: BUR/OP 11:25
PROVIDERS: ATTEND Internal Medicine Infectious Disease
DX: M86.171 Other acute osteomyelitis, right ankle and foot (principal); Z79.01 Long term (current) use of anticoagulants; Z79.2 Long term (current) use of antibiotics; Z79.4 Long term (current) use of insulin; Z79.899 Other long term (current) drug therapy; Z88.1 Allergy status to other antibiotic agents; Z88.2 Allergy status to sulfonamides; Z88.8 Allergy status to other drugs, medicaments and biological substances; Z91.041 Radiographic dye allergy status
CPT/HCPCS: 96365; 96366; 96367; 99201; G0463; J1335; J1642; J3370; J7050

== ENCOUNTER → 2018-08-23 | Day surgery (SDC) | payer MEDICARE ==
[~2018-08-23] MED LIST changes: -Ertapenem 1 GM VIAL ONE; -Sodium Chloride 0.9% 100 ML BAG ONE; +Vancomycin HCl 750 MG VIAL ONE
[2018-08-23 12:19] VITALS: BP 139/64; TEMP 97.5
== END ==
LOC: BUR/OP 11:16
PROVIDERS: ATTEND Internal Medicine Infectious Disease
DX: M86.171 Other acute osteomyelitis, right ankle and foot (principal); Z91.041 Radiographic dye allergy status; Z88.2 Allergy status to sulfonamides; Z88.8 Allergy status to other drugs, medicaments and biological substances; Z88.1 Allergy status to other antibiotic agents; Z79.2 Long term (current) use of antibiotics; Z79.4 Long term (current) use of insulin; Z79.01 Long term (current) use of anticoagulants; Z79.82 Long term (current) use of aspirin; Z79.899 Other long term (current) drug therapy
CPT/HCPCS: 96365; 96366; 96367; 99201; G0463; J3370

== ENCOUNTER → 2018-08-24 | Day surgery (SDC) | payer MEDICARE ==
[~2018-08-24] MED LIST changes: +Ertapenem 1 GM VIAL ONE; +Sodium Chloride 0.9% 100 ML BAG ONE; -Vancomycin HCl 750 MG VIAL ONE
[2018-08-24 11:59] VITALS: BP 188/79; TEMP 97.7
== END ==
LOC: BUR/OP 11:13
PROVIDERS: ATTEND Internal Medicine Infectious Disease
DX: M86.171 Other acute osteomyelitis, right ankle and foot (principal); Z91.041 Radiographic dye allergy status; Z88.2 Allergy status to sulfonamides; Z88.1 Allergy status to other antibiotic agents; Z88.8 Allergy status to other drugs, medicaments and biological substances; Z79.2 Long term (current) use of antibiotics; Z79.4 Long term (current) use of insulin; Z79.01 Long term (current) use of anticoagulants; Z79.82 Long term (current) use of aspirin; Z79.899 Other long term (current) drug therapy
CPT/HCPCS: 96365; 96366; 96367; 99201; G0463; J1335; J1642; J3370; J7050

== ENCOUNTER → 2018-08-25 | Day surgery (SDC) | payer MEDICARE ==
[2018-08-25 11:50] LABS: Hemoglobin 10.2 g/dL (14.0-18.0); Mean Corpuscular HGB CONC 32.5 g/dL (32.0-36.0); Mean Corpuscular Hemoglobin 29.9 pg (27.0-31.0); Mean Platelet Volume 8.5 fL (7.4-10.4); Platelet Count 212 thou/uL (130-400); RBC Distribution Width 14.6 % (11.5-14.5); Red Blood Cell (RBC) Count 3.42 mill/uL (4.70-6.10); White Blood Cell (WBC) Count 6.7 thou/uL (4.8-10.8)
[2018-08-25 12:03] VITALS: BP 170/72; TEMP 98
[2018-08-25 12:04] LABS: Vancomycin, Trough 16.9 ug/mL
[2018-08-25 12:06] LABS: ALT (SGPT) 25 U/L (8-55); AST (SGOT) 25 U/L (5-34); Albumin 3.2 g/dL (3.4-4.8); Alkaline Phosphatase 88 U/L (40-150); Anion Gap 17 mmol/L (10-20); BUN (Urea Nitrogen) 20 mg/dL (8.4-25.7); Bilirubin, Total 0.7 mg/dL (0.2-1.2); Calc. Creatinine Clearance 0 mL/min (70-130); Calcium 8.8 mg/dL (7.8-10.44); Carbon Dioxide 28 mmol/L (23-31); Chloride 101 mmol/L (98-107); Estimated GFR-MDRD 68; Globulin 2.9 g/dL (2.4-3.5); Glucose 195 mg/dL (83-110); Potassium 3.9 mmol/L (3.5-5.1); Protein, Total 6.1 g/dL (5.8-8.1); Sodium 142 mmol/L (136-145)
== END ==
LOC: BUR/OP 11:02
PROVIDERS: ATTEND Internal Medicine Infectious Disease
DX: M86.171 Other acute osteomyelitis, right ankle and foot (principal)
CPT/HCPCS: 36415; 80053; 80202; 85027; 96365; 96367; 96376; 99201; G0463

== ENCOUNTER → 2018-08-26 | Day surgery (SDC) | payer MEDICARE ==
[2018-08-26 11:46] VITALS: BP 176/74; TEMP 98.2
== END ==
LOC: BUR/OP 11:05
PROVIDERS: ATTEND Internal Medicine Infectious Disease
DX: M86.171 Other acute osteomyelitis, right ankle and foot (principal)
CPT/HCPCS: 96365; 96366; 96367; 99201; G0463

== ENCOUNTER → 2018-08-27 | Day surgery (SDC) | payer MEDICARE ==
[2018-08-27 13:48] VITALS: BP 158/69
== END ==
LOC: BUR/OP 11:03
PROVIDERS: ATTEND Internal Medicine Infectious Disease
DX: M86.171 Other acute osteomyelitis, right ankle and foot (principal); Z88.2 Allergy status to sulfonamides; Z91.041 Radiographic dye allergy status; Z88.8 Allergy status to other drugs, medicaments and biological substances
CPT/HCPCS: 96365; 96367; 99201; G0463